=== PATIENT | male | born 2000 | race Two or more races ===

== ENCOUNTER 2024-01-18 21:32 | Emergency (ER) | payer OTHER ==
[~2024-01-18] VITALS: Ht 180.3 cm; Wt 72.6 kg
[2024-01-19] MEDS: SODIUM CHLORIDE 0.9% 1,000 ML IV ONE (00:29)
[2024-01-19] MEDS ORDERED: IBUP-1455 PO (00:56)
[2024-01-19] MEDS ORDERED: HYDR-4798 PO (00:56)
[2024-01-19] MEDS: HYDROcodone-ACET 10/325MG TAB PO ONE (01:20)
[2024-01-19 01:30] VITALS: BP 111/71; PULSE 66; RESP 17; TEMP 97.9; O2SAT 99
== END 2024-01-19 01:37 | disposition home or self-care (01) ==
LOC: ER 21:32 → EEVIPCON 21:32 → ER 01-19 01:37
DX: S82.842A Displaced bimalleolar fracture of left lower leg, initial encounter for closed fracture (principal); X58.XXXA Exposure to other specified factors, initial encounter; Y93.67 Activity, basketball; Y92.89 Other specified places as the place of occurrence of the external cause; Y99.8 Other external cause status
CPT/HCPCS: 29515; 73610; 96360; 99283; J7030